=== PATIENT | male | born 1995 | race Caucasian/White ===

== ENCOUNTER 2017-09-12 16:18 | Inpatient (IN) | payer MEDICAID, OTHER ==
[~2017-09-12] VITALS: Ht 162.6 cm; Wt 101.2 kg
[~2017-09-12 16:18] MED LIST: RISP.5 PO
[2017-09-12 17:16] LABS: AMPHET/METH SCREEN,URINE NEGATIVE (NEGATIVE); BARBITURATE SCREEN, URINE NEGATIVE (NEGATIVE); BENZODIAZEPINES SCREEN,URINE NEGATIVE (NEGATIVE); CANNABINOID SCREEN,URINE POSITIVE (NEGATIVE); COCAINE SCREEN,URINE NEGATIVE (NEGATIVE); METHADONE SCREEN, URINE NEGATIVE (NEGATIVE); OPIATE SCREEN,URINE NEGATIVE (NEGATIVE)
[2017-09-12 17:17] LABS: PHENCYCLIDINE SCREEN,URINE NEGATIVE (NEGATIVE)
[2017-09-12 17:24] LABS: BASOPHILS % (AUTO) 0.3 % (0.0-2.0); EOSINOPHILS % (AUTO) 0.4 % (1.0-6.0); HEMATOCRIT 47.9 % (41-53); HEMOGLOBIN 17.2 g/dL (13.5-17.5); LYMPHOCYTES # (AUTO) 2.2 K/uL (1.0-4.8); LYMPHOCYTES % (AUTO) 17.9 % (22.0-44.0); MEAN CORPUSCULAR HEMOGLOBIN 32.6 pg (26.0-34.0); MEAN CORPUSCULAR VOLUME 91 fL (80-100); MONOCYTES # (AUTO) 0.8 K/uL (0.1-1.0); NEUTROPHILS % (AUTO) 74.4 % (40.0-70.0); PLATELET COUNT (AUTO) 284 K/uL (150-450); RED BLOOD CELL COUNT(AUTO) 5.28 MIL/uL (4.50-5.90); RED CELL DISTRIBUTION WIDTH 12.3 % (11.5-14.5)
[2017-09-12 17:39] LABS: ANION GAP 11 mmol/L (8-16); CALCIUM, TOTAL 9.5 mg/dL (8.8-10.5); CARBON DIOXIDE 27 mmol/L (22-29); CHLORIDE 104 mmol/L (98-107); CREATININE 0.89 mg/dL (0.60-1.30); GLOMERULAR FILTR. RATE CALC > 60 mL/min (>60); GLUCOSE,RANDOM 107 mg/dL (70-110); POTASSIUM 3.3 mmol/L (3.5-5.1); SODIUM SERUM 142 mmol/L (136-145); UREA NITROGEN, BLOOD 11 mg/dL (7-18)
[2017-09-12 17:46] LABS: ALANINE AMINOTRANSFERASE 75 U/L (12-78); ALBUMIN 4.6 g/dL (3.4-5.0); ALKALINE PHOSPHATASE 87 U/L (46-116); ASPARTATE AMINOTRANSFERASE 28 U/L (15-37); BILIRUBIN,TOTAL 0.6 mg/dL (0.1-1.0); TOTAL PROTEIN, SERUM 8.4 g/dL (6.4-8.2)
[2017-09-12] MEDS ORDERED: ZOLPIDEM TARTRATE 10 MG TABLET PO PRN (21:15)
[2017-09-12 22:29] VITALS: BP 121/84
[2017-09-12] MEDS ORDERED: INFLUENZA VIRUS VACCINE QVS 2017-18 (3YR+)/PF 60 MCG/0.5 ML SYRINGE IM ONE (22:45)
[2017-09-13 06:34] VITALS: BP 114/78
[2017-09-13 08:39] VITALS: BP 104/64
[2017-09-13] MEDS ORDERED: ALBUTEROL SULFATE HFA 90 MCG/PUFF 8 GM INHALER IH PRN (08:45)
[2017-09-13] MEDS ORDERED: MAG HYDROX/AL HYDROX/SIMETH ES 30 ML SUSPENSION UDCUP PO PRN (08:45)
[2017-09-13] MEDS ORDERED: POTASSIUM CHLORIDE 20 MEQ ER TABLET PO ONE (08:45)
[2017-09-13] MEDS ORDERED: ACETAMINOPHEN 325 MG TABLET PO PRN (08:45)
[2017-09-13] MEDS ORDERED: PETROLATUM,WHITE 71 GM JELLY TP PRN (08:45)
[2017-09-13] MEDS ORDERED: BENZOCAINE/MENTHOL LOZENGE MM PRN (08:45)
[2017-09-13] MEDS ORDERED: IBUPROFEN 600 MG TABLET PO PRN (08:45)
[2017-09-13] MEDS ORDERED: LOPERAMIDE HCL 2 MG CAPSULE PO PRN (08:45)
[2017-09-13] MEDS ORDERED: BACITRACIN 28.4 GM OINTMENT TP PRN (08:45)
[2017-09-13] MEDS ORDERED: ONDANSETRON HCL 4 MG TABLET PO PRN (08:45)
[2017-09-13] MEDS ORDERED: CloNIDine HCL 0.1 MG TABLET PO PRN (08:45)
[2017-09-13] MEDS ORDERED: MAGNESIUM HYDROXIDE SUSPENSION 30 ML UDCUP PO PRN (08:45)
[2017-09-13 08:59] LABS: CHOL/HDL RATIO 4.2 (4.2-7.3)
[2017-09-13 16:07] VITALS: BP 125/74
[2017-09-13] MEDS: RisperiDONE 1 MG TABLET PO SCH (16:25)
[2017-09-14 01:33] VITALS: BP 119/72
[2017-09-14 08:06] LABS: BASOPHILS % (AUTO) 0.4 % (0.0-2.0); EOSINOPHILS % (AUTO) 1.4 % (1.0-6.0); HEMOGLOBIN 15.1 g/dL (13.5-17.5); LYMPHOCYTES % (AUTO) 29.6 % (22.0-44.0); MEAN CORPUSCULAR VOLUME 92 fL (80-100); MONOCYTES # (AUTO) 0.7 K/uL (0.1-1.0); MONOCYTES % (AUTO) 6.8 % (2.0-9.0); NEUTROPHILS # (AUTO) 6.2 K/uL (1.8-7.7); NEUTROPHILS % (AUTO) 61.8 % (40.0-70.0); PLATELET COUNT (AUTO) 205 K/uL (150-450); RED BLOOD CELL COUNT(AUTO) 4.58 MIL/uL (4.50-5.90); RED CELL DISTRIBUTION WIDTH 12.4 % (11.5-14.5)
[2017-09-14 08:10] VITALS: BP 120/69
[2017-09-14] MEDS: RisperiDONE 1 MG TABLET PO SCH ×2 (08:35→16:08)
[2017-09-14] MEDS: HALOPERIDOL 5 MG TABLET PO PRN (08:35)
[2017-09-14] MEDS: LORazepam 2 MG TABLET PO PRN ×2 (08:36→16:08)
[2017-09-14 16:28] VITALS: BP 123/69
[2017-09-15 06:27] VITALS: BP 109/86
[2017-09-15 08:37] VITALS: BP 122/83
[2017-09-15] MEDS: LORazepam 2 MG TABLET PO PRN ×2 (08:45→16:09)
[2017-09-15] MEDS: RisperiDONE 1 MG TABLET PO SCH ×2 (08:45→16:09)
[2017-09-15] MEDS: HALOPERIDOL 5 MG TABLET PO PRN (08:45)
[2017-09-15 16:25] VITALS: BP 130/66
[2017-09-16 01:06] VITALS: BP 116/61
[2017-09-16 08:15] VITALS: BP 119/58
[2017-09-16] MEDS: RisperiDONE 1 MG TABLET PO SCH ×2 (09:31→16:08)
[2017-09-16] MEDS: LORazepam 2 MG TABLET PO PRN (16:08)
[2017-09-16 16:41] VITALS: BP 119/72
[2017-09-17 06:39] VITALS: BP 116/65
[2017-09-17 08:06] VITALS: BP 111/59
[2017-09-17] MEDS ORDERED: CHOLECALCIFEROL (VIT D3) 1,000 UNITS TABLET PO SCH (09:00)
[2017-09-17] MEDS: RisperiDONE 1 MG TABLET PO SCH (09:07)
[2017-09-17] MEDS ORDERED: VITAD1000 PO (11:27)
[2017-09-17] MEDS ORDERED: RISP1 PO (11:27)
== END 2017-09-17 15:30 | disposition home or self-care (01) | DRG 750 ==
LOC: EMS 16:21 → B2S 20:30
PROVIDERS: ADMIT Psychiatry & Neurology Child & Adolescent Psychiatry; ATTEND Psychiatry & Neurology Child & Adolescent Psychiatry
PROC: 3E0234Z Introduction of Serum, Toxoid and Vaccine into Muscle, Percutaneous Approach (ICD-10-PCS; principal; 2017-09-12)
DX: F25.1 Schizoaffective disorder, depressive type (principal); R45.851 Suicidal ideations; F29 Unspecified psychosis not due to a substance or known physiological condition; E87.6 Hypokalemia; E66.9 Obesity, unspecified; F41.9 Anxiety disorder, unspecified; F12.10 Cannabis abuse, uncomplicated; F17.210 Nicotine dependence, cigarettes, uncomplicated; G47.00 Insomnia, unspecified; F32.9 Major depressive disorder, single episode, unspecified; D72.829 Elevated white blood cell count, unspecified; Z68.38 Body mass index [BMI] 38.0-38.9, adult; Z79.899 Other long term (current) drug therapy; Z23 Encounter for immunization
CPT/HCPCS: 82306; 84132; 99285; G0480

== ENCOUNTER 2021-08-11 15:45 | Outpatient (CLI) | payer MEDICARE, MEDICAID ==
[~2021-08-11] VITALS: Ht 172.7 cm; Wt 108.9 kg
[~2021-08-11 15:45] MED LIST changes: +CHOL100018 PO; -RISP.5 PO; +RISP1TAB48 PO
[2021-08-11 15:53] VITALS: BP 113/82
[2021-08-11] MEDS ORDERED: HALOPERIDOL 5 MG TABLET PO ONE (16:45)
[2021-08-11 16:46] LABS: GLUCOMETER DEV NAME(LOC) POC.BV
[2021-08-11 16:52] VITALS: BP 113/82
[2021-08-11 20:04] VITALS: BP 120/77
[2021-08-11] MEDS ORDERED: HALOPERIDOL 5 MG TABLET PO SCH (21:00)
== END 2021-08-12 07:30 | disposition home or self-care (01) ==
LOC: CSU 15:45
PROVIDERS: ATTEND Psychiatry & Neurology Psychiatry
DX: F20.9 Schizophrenia, unspecified (principal); F29 Unspecified psychosis not due to a substance or known physiological condition; Z20.822 Contact with and (suspected) exposure to COVID-19
CPT/HCPCS: 90792; Z7610

== ENCOUNTER → 2022-01-04 | Outpatient (CLI) | payer MEDICARE, MEDICAID | END | disposition home or self-care (01) | LOC: LABMN 12:45 | PROVIDERS: ATTEND Psychiatry & Neurology Psychiatry | DX: F20.9 Schizophrenia, unspecified (principal) | CPT/HCPCS: 80173 ==

== ENCOUNTER 2022-10-04 13:59 | Inpatient (IN) | payer MEDICARE, MEDICAID ==
[~2022-10-04] VITALS: Ht 172.7 cm; Wt 98.4 kg
[2022-10-04 17:10] LABS: AMPHET/METH SCREEN,URINE NEGATIVE (NEGATIVE); BARBITURATE SCREEN, URINE NEGATIVE (NEGATIVE); BENZODIAZEPINES SCREEN,URINE NEGATIVE (NEGATIVE); CANNABINOID SCREEN,URINE NEGATIVE (NEGATIVE); COCAINE SCREEN,URINE NEGATIVE (NEGATIVE); METHADONE SCREEN, URINE NEGATIVE (NEGATIVE); OPIATE SCREEN,URINE NEGATIVE (NEGATIVE); PHENCYCLIDINE SCREEN,URINE NEGATIVE (NEGATIVE)
[2022-10-04 17:11] LABS: BASOPHILS % (AUTO) 0.3 % (0.0-2.0); HEMATOCRIT 48.9 % (41-53); HEMOGLOBIN 16.9 g/dL (13.5-17.5); LYMPHOCYTES # (AUTO) 2.6 K/uL (1.0-4.8); LYMPHOCYTES % (AUTO) 31.7 % (22.0-44.0); MEAN CORPUSCULAR HEMOGLOBIN 32.4 pg (26.0-34.0); MEAN CORPUSCULAR HGB CONC 34.6 G/dL (31.0-37.0); MEAN CORPUSCULAR VOLUME 94 fL (80-100); MONOCYTES # (AUTO) 0.6 K/uL (0.1-1.0); MONOCYTES % (AUTO) 7.3 % (2.0-9.0); NEUTROPHILS # (AUTO) 4.9 K/uL (1.8-7.7); NEUTROPHILS % (AUTO) 59.7 % (40.0-70.0); PLATELET COUNT (AUTO) 188 K/uL (150-450); RED BLOOD CELL COUNT(AUTO) 5.21 MIL/uL (4.50-5.90)
[2022-10-04] MEDS ORDERED: HALOPERIDOL 5 MG TABLET PO ONE (17:15)
[2022-10-04 17:17] LABS: ANION GAP 7 mmol/L (8-16); CALCIUM, TOTAL 9.2 mg/dL (8.8-10.5); CARBON DIOXIDE 28 mmol/L (22-29); CHLORIDE 105 mmol/L (98-107); CREATININE 0.72 mg/dL (0.60-1.30); GLOMERULAR FILTR. RATE CALC > 60 mL/min (>60); GLUCOSE,RANDOM 90 mg/dL (70-110); SODIUM SERUM 140 mmol/L (136-145); UREA NITROGEN, BLOOD 8 mg/dL (7-18)
[2022-10-04 17:23] LABS: ALANINE AMINOTRANSFERASE 20 U/L (12-78); ALBUMIN 4.2 g/dL (3.4-5.0); ALKALINE PHOSPHATASE 74 U/L (46-116); ASPARTATE AMINOTRANSFERASE 21 U/L (15-37); BILIRUBIN,TOTAL 0.3 mg/dL (0.1-1.0); TOTAL PROTEIN, SERUM 7.6 g/dL (6.4-8.2)
[2022-10-04 17:30] LABS: ACETAMINOPHEN > 2 mcg/mL (10-30)
[2022-10-04 17:42] LABS: SALICYLATE 5.7 mg/dL (2.8-20.0)
[2022-10-04] MEDS ORDERED: DOCUSATE SODIUM 100 MG CAPSULE PO ONE (17:45)
[2022-10-04 19:11] LABS: COVID AG,FIA SOURCE NASOPHARYNGEAL
[2022-10-04] MEDS ORDERED: LORazepam 2 MG TABLET PO PRN (19:15)
[2022-10-04] MEDS ORDERED: ZOLPIDEM TARTRATE 10 MG TABLET PO PRN (19:15)
[2022-10-04] MEDS ORDERED: HALOPERIDOL 5 MG TABLET PO PRN (19:15)
[2022-10-04 23:00] VITALS: BP 112/59
[2022-10-05] MEDS ORDERED: INFLUENZA VIRUS VACCINE QVS 2022-23 (6MO+)/PF 60 MCG/0.5 ML SYRINGE IM. ONE (03:45)
[2022-10-05] MEDS ORDERED: PNEUMOCOCCAL VACCINE POLYVALENT 0.5 ML VIAL [PPSV23] IM. ONE (03:45)
[2022-10-05] MEDS ORDERED: PETROLATUM,WHITE 28 GM JELLY TP PRN (06:30)
[2022-10-05] MEDS ORDERED: DOCUSATE SODIUM 100 MG CAPSULE PO PRN (06:30)
[2022-10-05] MEDS ORDERED: LOPERAMIDE HCL 2 MG CAPSULE PO PRN (06:30)
[2022-10-05] MEDS ORDERED: ALBUTEROL SULFATE HFA 90 MCG/PUFF 8 GM INHALER IH PRN (06:30)
[2022-10-05] MEDS ORDERED: MAG HYDROX/AL HYDROX/SIMETH ES 30 ML SUSPENSION UDCUP PO PRN (06:30)
[2022-10-05] MEDS ORDERED: MAGNESIUM HYDROXIDE SUSPENSION 30 ML UDCUP PO PRN (06:30)
[2022-10-05] MEDS ORDERED: GuaiFENesin/D-METHORPHAN [SUGAR-FREE] 200-20MG/10 ML SYRUP UDCUP PO PRN (06:30)
[2022-10-05] MEDS ORDERED: ONDANSETRON HCL 4 MG TABLET PO PRN (06:30)
[2022-10-05] MEDS ORDERED: IBUPROFEN 400 MG TABLET PO PRN (06:30)
[2022-10-05] MEDS ORDERED: ACETAMINOPHEN 325 MG TABLET PO PRN (06:30)
[2022-10-05] MEDS ORDERED: CloNIDine HCL 0.1 MG TABLET PO PRN (06:30)
[2022-10-05 08:31] VITALS: BP 128/70
[2022-10-05] MEDS: CHOLECALCIFEROL (VIT D3) 1,000 UNITS [25 MCG] TABLET PO SCH (09:09)
[2022-10-05] MEDS: RisperiDONE 1 MG TABLET PO SCH ×2 (10:16→20:43)
[2022-10-05 20:10] VITALS: BP 121/75
[2022-10-05] MEDS: ZOLPIDEM TARTRATE 10 MG TABLET PO PRN (23:04)
[2022-10-06 07:41] LABS: BASOPHILS % (AUTO) 0.2 % (0.0-2.0); EOSINOPHILS % (AUTO) 1.3 % (1.0-6.0); HEMATOCRIT 46.7 % (41-53); LYMPHOCYTES # (AUTO) 2.3 K/uL (1.0-4.8); LYMPHOCYTES % (AUTO) 31.4 % (22.0-44.0); MEAN CORPUSCULAR HEMOGLOBIN 31.9 pg (26.0-34.0); MEAN CORPUSCULAR HGB CONC 34.2 G/dL (31.0-37.0); MEAN CORPUSCULAR VOLUME 93 fL (80-100); MONOCYTES # (AUTO) 0.5 K/uL (0.1-1.0); MONOCYTES % (AUTO) 6.8 % (2.0-9.0); NEUTROPHILS # (AUTO) 4.4 K/uL (1.8-7.7); NEUTROPHILS % (AUTO) 60.3 % (40.0-70.0); PLATELET COUNT (AUTO) 170 K/uL (150-450); RED CELL DISTRIBUTION WIDTH 13.7 % (11.5-14.5)
[2022-10-06 08:24] VITALS: BP 133/72
[2022-10-06] MEDS: RisperiDONE 1 MG TABLET PO SCH ×2 (09:00→20:18)
[2022-10-06] MEDS: CHOLECALCIFEROL (VIT D3) 1,000 UNITS [25 MCG] TABLET PO SCH (09:00)
[2022-10-06] MEDS ORDERED: LORazepam 2 MG/ML VIAL ONE (09:28)
[2022-10-06] MEDS ORDERED: DiphenhydrAMINE HCL 50 MG/ML VIAL ONE (09:29)
[2022-10-06] MEDS ORDERED: HALOPERIDOL LACTATE 5 MG/ML VIAL ONE (09:29)
[2022-10-06] MEDS ORDERED: DiphenhydrAMINE HCL 50 MG/ML VIAL IM ONE (09:45)
[2022-10-06] MEDS ORDERED: HALOPERIDOL LACTATE 5 MG/ML VIAL IM ONE (09:45)
[2022-10-06] MEDS ORDERED: LORazepam 2 MG/ML VIAL IM ONE (09:45)
[2022-10-06 20:31] VITALS: BP 130/72
[2022-10-07 08:19] VITALS: BP 123/73
[2022-10-07] MEDS: NICOTINE 14 MG/24 HOUR PATCH TD PRN (08:58)
[2022-10-07] MEDS: CHOLECALCIFEROL (VIT D3) 1,000 UNITS [25 MCG] TABLET PO SCH ×2 (09:00→12:50)
[2022-10-07] MEDS: RisperiDONE 1 MG TABLET PO SCH ×3 (09:00→20:50)
[2022-10-07] MEDS ORDERED: LORazepam 2 MG/ML VIAL IM ONE (10:15)
[2022-10-07] MEDS ORDERED: HALOPERIDOL LACTATE 5 MG/ML VIAL IM ONE (10:15)
[2022-10-07] MEDS ORDERED: DiphenhydrAMINE HCL 50 MG/ML VIAL IM ONE (10:15)
[2022-10-07] MEDS: LORazepam 2 MG TABLET PO PRN ×2 (13:22→17:45)
[2022-10-07] MEDS: HALOPERIDOL 5 MG TABLET PO PRN ×2 (13:22→17:45)
[2022-10-07 20:13] VITALS: BP 139/71
[2022-10-08] MEDS: LORazepam 2 MG TABLET PO PRN (04:56)
[2022-10-08 08:30] VITALS: BP 142/88
[2022-10-08] MEDS: RisperiDONE 1 MG TABLET PO SCH ×2 (09:40→20:06)
[2022-10-08] MEDS: CHOLECALCIFEROL (VIT D3) 1,000 UNITS [25 MCG] TABLET PO SCH (09:40)
[2022-10-08] MEDS: NICOTINE 14 MG/24 HOUR PATCH TD PRN (09:58)
[2022-10-08 20:49] VITALS: BP 140/86
[2022-10-08 21:07] VITALS: BP 129/76
[2022-10-09] MEDS: ZOLPIDEM TARTRATE 10 MG TABLET PO PRN (00:20)
[2022-10-09] MEDS: LORazepam 2 MG TABLET PO PRN (00:20)
[2022-10-09] MEDS: HALOPERIDOL 5 MG TABLET PO PRN (01:25)
[2022-10-09] MEDS: RisperiDONE 1 MG TABLET PO SCH (08:12)
[2022-10-09] MEDS: CHOLECALCIFEROL (VIT D3) 1,000 UNITS [25 MCG] TABLET PO SCH (08:12)
[2022-10-09 08:50] VITALS: BP 133/68
== END 2022-10-09 18:09 | disposition left against medical advice (07) | DRG 885 ==
LOC: EMS 13:59 → B2X 21:47
PROVIDERS: ADMIT Psychiatry & Neurology Psychiatry; ATTEND Psychiatry & Neurology Psychiatry
DX: F20.0 Paranoid schizophrenia (principal); R45.851 Suicidal ideations; Z20.822 Contact with and (suspected) exposure to COVID-19; K59.00 Constipation, unspecified; F90.9 Attention-deficit hyperactivity disorder, unspecified type; F41.9 Anxiety disorder, unspecified; E56.9 Vitamin deficiency, unspecified; E66.9 Obesity, unspecified; Z79.899 Other long term (current) drug therapy; Z87.891 Personal history of nicotine dependence; Z68.33 Body mass index [BMI] 33.0-33.9, adult
CPT/HCPCS: 80053; 80307; 85025; 99285; G0480; G0481; J1200; J1630; J2060

== ENCOUNTER → 2024-11-03 | Outpatient (CLI) | payer MEDICARE, OTHER ==
[~2024-11-03] MED LIST changes: -CHOL100018 PO; -RISP1TAB48 PO; +RISP4TAB94 PO
== END | disposition home or self-care (01) ==
LOC: LABMN 11:35
PROVIDERS: ATTEND Psychiatry & Neurology Psychiatry
DX: F20.9 Schizophrenia, unspecified (principal)
CPT/HCPCS: 80173